=== PATIENT | female | born 1975 | race Caucasian/White ===

== ENCOUNTER 2017-05-19 10:29 | Outpatient (CLI) | payer BC ==
[2017-05-19 18:02] LABS: BASOPHILS # (AUTO) 0.1 10^3/uL (0.0-0.1); BASOPHILS % (AUTO) 0.7 %; EOSINOPHILS % (AUTO) 0.4 %; HCT - HEMATOCRIT 46.2 % (37.0-47.0); HGB - HEMOGLOBIN 15.4 g/dL (12.0-16.0); LYMPHOCYTES # (AUTO) 1.6 10^3/uL (1.5-3.5); LYMPHOCYTES % (AUTO) 19.4 %; MEAN CORPUSCULAR HEMOGLOBIN 31.5 pg (27.0-31.0); MEAN CORPUSCULAR HGB CONC 33.2 g/dL (32.0-36.0); MEAN CORPUSCULAR VOLUME 94.6 fL (81.0-99.0); MEAN PLATELET VOLUME 10.2 fL (7.9-10.8); MONOCYTES # (AUTO) 0.5 10^3/uL (0.0-1.0); MONOCYTES % (AUTO) 5.8 %; NEUTROPHILS # (AUTO) 6.1 10^3/uL (1.5-6.6); NEUTROPHILS % (AUTO) 73.7 %; NUCLEATED RED BLOOD CELLS AUTO 0.1 /100WBC; RED BLOOD COUNT 4.88 10^6/uL (4.20-5.40); UNCORRECTED WHITE BLOOD COUNT 8.3 x10^3/uL; WHITE BLOOD COUNT 8.3 x10^3/uL (4.8-10.8)
== END 2017-05-19 10:30 | disposition home or self-care (01) ==
LOC: LAB.F 10:29
PROVIDERS: ATTEND Physician Assistant Medical
DX: E03.9 Hypothyroidism, unspecified (principal); R53.83 Other fatigue
CPT/HCPCS: 36415; 84443; 85025

== ENCOUNTER 2017-06-23 13:51 | Outpatient (CLI) | payer BC ==
--- NOTE | 2017-06-23 15:26 | Mammography Report ---
DIGITAL DIAGNOSTIC BILATERAL MAMMOGRAM: 06/23/2017 CLINICAL INDICATION: A 42-year-old with bilateral breast tenderness. COMPARISON: 09/26/2004. TECHNIQUE: Bilateral CC, MLO, true lateral, laterally exaggerated CC views. The patient describes diffuse left breast tenderness and lateral right breast tenderness. No point of maximal tenderness could be identified, so no marker was placed. FINDINGS: The breasts again demonstrate heterogeneously dense fibroglandular parenchyma bilaterally. Parenchymal asymmetry in the left upper inner posterior breast is unchanged. No suspicious masses, cl ustered microcalcifications, or regions of architectural distortion are identified. IMPRESSION: BENIGN FINDINGS. RECOMMENDATION: ROUTINE ANNUAL SCREENING UNLESS OTHERWISE CLINICALLY INDICATED. BIRADS CATEGORY 2-BENIGN FINDINGS. STANDARD QUALIFYING STATEMENTS 1. This examination was reviewed with the aid of Computer-Aided Detection (CAD). 2. A negative or benign imaging report should not delay biopsy if clinically suspicious findings are present. Consider surgical consultation if warranted. More than 5% of cancers are not identified by i maging. 3. Dense breasts may obscure an underlying neoplasm. JOB #: [id number] EXT JOB #:[id number]
== END 2017-06-23 13:52 | disposition home or self-care (01) ==
LOC: DI 13:51
PROVIDERS: ATTEND Physician Assistant Medical
DX: N64.4 Mastodynia (principal)
CPT/HCPCS: 77066

== ENCOUNTER 2017-09-29 12:45 | Emergency (ER) | payer BC ==
[2017-09-29 12:51] VITALS: BP 135/93
--- NOTE | 2017-09-29 12:57 | ED Physician Documentation ---
PD HPI SKIN - Stated complaint Stated Complaint: RASH - Chief complaint Chief Complaint: General - History obtained from History obtained from: Patient - History of Present Illness Timing - onset: Yesterday Timing - duration: Days (1) Timing - details: Gradual onset, Still present Location: Bodywide (mostly trunk and some face.) Quality / character: Itchy, Swelling. No: Vesicular, Draining Improved by: No: Benadryl Associated symptoms: No: Fever, Myalgias, N/V/D, Urinary sx Contributing factors: Exposed to medication (placed on Bactrim for UTI recently. Just finished the course a few days ago.) Similar symptoms before: Has not had sx before Recently seen: Clinic (seen for facial acne flare up and Rx with Bactrim BID 4 days ago. She says she had some feeling of throat tightness initial dose then was okay. Did not take it for 2 days as was out of town with med. Resumed it 2 days ago and has had increasing rash since then. 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, Hysterectomy HEENT: Tonsil/Adenoidectomy - Present Medications Home Medications: Ambulatory Orders Medication Instructions Recorded Confirmed Clindamycin Phosphate 1 applic TP BID #60 ml 09/29/17 Dexamethasone [Decadron] 4 mg PO DAILY #5 tablet 09/29/17 Doxycycline Monohydrate 100 mg PO BID #14 tablet 09/29/17 - Allergies Allergies/Adverse Reactions: Allergies Allergy/AdvReac Type Severity Reaction Status Date / Time Penicillins AdvReac Unknown Verified 09/29/17 12:51 - Social History Does the pt smoke?: Yes Smoking Status: Current every day smoker Does the pt drink ETOH?: Yes Does the pt have substance abuse?: No - Immunizations Immunizations are current?: Yes - POLST Patient has POLST: No PD ED PE NORMAL - Vitals Vital signs reviewed: Yes - General General: Alert and oriented X 3, No acute distress, Well developed/nourished - HEENT HEENT: Moist mucous membranes, Pharynx benign - Neck Neck: Supple, no meningeal sign, No adenopathy - Cardiac Cardiac: RRR, No murmur - Respiratory Respiratory: Clear bilaterally - Back Back: No CVA TTP - Derm Derm: Normal color, Other (scattered red spotty rash on trnk, neck and side of face. No oral swelling. Rash without vesicles, petechia, nor purpura. ) - Extremities Extremities: No edema, No calf tenderness / cord Results - Vitals Vitals: Vital Signs - 24 hr 09/29/17 12:47 Temperature 36.3 C L Heart Rate 77 Respiratory 18 Rate Blood Pressure 135/93 H O2 Saturation 100 Oxygen O2 Source Room air PD MEDICAL DECISION MAKING - ED course Complexity details: considered differential (spotty rash without vesicles nor petechia. She appears okay otherwise. Oral exam normal and lungs clear. ), d/w patient Departure - Departure Disposition: 01 Home, Self Care Clinical Impression: Acute dermatitis, Drug allergy, antibiotic Condition: Stable Record reviewed to determine appropriate education?: Yes Instructions: ED Drug React Allergic Follow-Up: [facility] [Provider Group] Prescriptions: Clindamycin Phosphate 1 applic TP BID #60 ml Dexamethasone [Decadron] 4 mg PO DAILY #5 tablet Doxycycline Monohydrate 100 mg PO BID #14 tablet Comments: Stop the Bactrim as you have already. We will presume your rashes from that at this point. Decadron steroid daily for 5 more days to reduce the reaction. You can continue the Benadryl or cetirizine antihistamines for itchiness. If you need a different treatment for your acne, you can use Clindamycin topically or doxycycline orally. Subsequently your land manager can do skin testing to see if you are truly allergic to the Bactrim or if there was another cause. Discharge Date/Time: 09/29/17 13:38
[2017-09-29] MEDS ORDERED: DEXAMETHASONE 10 MG/ML VIAL PO STA (13:24)
[2017-09-29] MEDS ORDERED: DEXAMETHASONE 10 MG/ML VIAL ONE (13:34)
== END 2017-09-29 13:38 | disposition home or self-care (01) ==
LOC: ED 12:45
DX: L30.9 Dermatitis, unspecified (principal); T37.0X5A Adverse effect of sulfonamides, initial encounter; F17.200 Nicotine dependence, unspecified, uncomplicated
CPT/HCPCS: 99283

== ENCOUNTER 2018-01-11 09:38 | Outpatient (CLI) | payer BC | END 2018-01-11 09:39 | disposition home or self-care (01) | LOC: LAB.F 09:38 | PROVIDERS: ATTEND Family Medicine | DX: Z53.9 Procedure and treatment not carried out, unspecified reason (principal) ==

== ENCOUNTER 2018-01-12 07:12 | Outpatient (CLI) | payer BC ==
[2018-01-12 12:00] LABS: BASOPHILS % (AUTO) 0.6 %; HGB - HEMOGLOBIN 14.4 g/dL (12.0-16.0); LYMPHOCYTES # (AUTO) 1.4 10^3/uL (1.5-3.5); LYMPHOCYTES % (AUTO) 29.8 %; MEAN CORPUSCULAR HEMOGLOBIN 31.6 pg (27.0-31.0); MEAN CORPUSCULAR HGB CONC 34.1 g/dL (32.0-36.0); MEAN CORPUSCULAR VOLUME 92.9 fL (81.0-99.0); MEAN PLATELET VOLUME 10.9 fL (7.9-10.8); MONOCYTES # (AUTO) 0.3 10^3/uL (0.0-1.0); MONOCYTES % (AUTO) 6.4 %; NEUTROPHILS # (AUTO) 2.8 10^3/uL (1.5-6.6); NEUTROPHILS % (AUTO) 62.2 %; PLT - PLATELET COUNT 162 10^3/uL (130-450); RED BLOOD COUNT 4.54 10^6/uL (4.20-5.40); RED CELL DISTRIBUTION WIDTH 13.2 % (12.0-15.0); WHITE BLOOD COUNT 4.6 x10^3/uL (4.8-10.8)
[2018-01-12 12:28] LABS: % IRON SATURATION 16 % (20-50); ALBUMIN 4.1 g/dL (3.2-5.5); ALBUMIN/GLOBULIN RATIO 1.7 (1.0-2.2); ALKALINE PHOSPHATASE 18 IU/L (42-121); ALT ALANINE AMINOTRANSFERASE 14 IU/L (10-60); AST ASPARTATE AMINOTRANSFERASE 17 IU/L (10-42); BILIRUBIN,TOTAL 0.4 mg/dL (0.2-1.0); BUN - BLOOD UREA NITROGEN 13 mg/dL (6-20); CALCIUM 8.7 mg/dL (8.5-10.3); CARBON DIOXIDE - CO2 23 mmol/L (21-32); CHLORIDE 109 mmol/L (101-111); CHOL/HDL RATIO 3.4 (<4.4); CHOLESTEROL 129 mg/dL; CREATININE 0.8 mg/dL (0.4-1.0); GFR - MDRD 78 (>89); GLUCOSE 99 mg/dL (70-100); HDL CHOLESTEROL 38 mg/dL; IRON 43 ug/dL (28-170); LDL CHOLESTEROL,CALCULATED 80 mg/dL; LDL/HDL RATIO 2.1 (<4.4); SODIUM 137 mmol/L (135-145); TOTAL IRON BINDING CAPACITY 265 ug/dL (250-450); TOTAL PROTEIN 6.5 g/dL (6.7-8.2); TRANSFERRIN 189 mg/dL (192-382); VLDL CHOLESTEROL 11 mg/dL
[2018-01-12 12:31] LABS: THYROID STIMULATING HORMONE 2.16 uIU/mL (0.34-5.60)
[2018-01-12 12:37] LABS: FERRITIN 82.2 ng/mL (11.0-306.8)
== END 2018-01-12 07:13 | disposition home or self-care (01) ==
LOC: LAB.F 07:12
PROVIDERS: ATTEND Family Medicine
DX: Z00.00 Encounter for general adult medical examination without abnormal findings (principal); D64.9 Anemia, unspecified; E03.9 Hypothyroidism, unspecified; L65.9 Nonscarring hair loss, unspecified
CPT/HCPCS: 36415; 80053; 80061; 82306; 82607; 82728; 83540; 83721; 84443; 84466; 85025

== ENCOUNTER 2020-01-19 10:45 | Outpatient (CLI) | payer SELFPAY ==
[2020-01-19 17:30] LABS: BASOPHILS # (AUTO) 0.1 10^3/uL (0.0-0.1); BASOPHILS % (AUTO) 0.7 %; EOSINOPHILS % (AUTO) 0.3 %; HGB - HEMOGLOBIN 14.2 g/dL (12.0-16.0); LYMPHOCYTES # (AUTO) 1.6 10^3/uL (1.5-3.5); LYMPHOCYTES % (AUTO) 22.7 %; MEAN CORPUSCULAR HEMOGLOBIN 31.3 pg (27.0-31.0); MEAN CORPUSCULAR HGB CONC 33.2 g/dL (32.0-36.0); MEAN CORPUSCULAR VOLUME 94.5 fL (81.0-99.0); MEAN PLATELET VOLUME 12.2 fL (7.9-10.8); MONOCYTES # (AUTO) 0.4 10^3/uL (0.0-1.0); MONOCYTES % (AUTO) 5.5 %; NEUTROPHILS % (AUTO) 70.4 %; PLT - PLATELET COUNT 243 10^3/uL (130-450); RED BLOOD COUNT 4.53 10^6/uL (4.20-5.40); RED CELL DISTRIBUTION WIDTH 12.9 % (12.0-15.0); WHITE BLOOD COUNT 7.1 x10^3/uL (4.8-10.8)
[2020-01-19 18:23] LABS: ALBUMIN 4.4 g/dL (3.2-5.5); ALBUMIN/GLOBULIN RATIO 1.8 (1.0-2.2); ALKALINE PHOSPHATASE 19 IU/L (42-121); ALT ALANINE AMINOTRANSFERASE 18 IU/L (10-60); AST ASPARTATE AMINOTRANSFERASE 19 IU/L (10-42); BILIRUBIN,TOTAL 1.1 mg/dL (0.2-1.0); BUN - BLOOD UREA NITROGEN 14 mg/dL (6-20); CALCIUM 9.4 mg/dL (8.5-10.3); CARBON DIOXIDE - CO2 24 mmol/L (21-32); CHLORIDE 107 mmol/L (101-111); CREATININE 0.8 mg/dL (0.4-1.0); GFR - MDRD 77 (>89); GLUCOSE 92 mg/dL (70-100); SODIUM 138 mmol/L (135-145); TOTAL PROTEIN 6.9 g/dL (6.7-8.2)
[2020-01-19 18:28] LABS: CRP - C-REACTIVE PROTEIN < 1.0 mg/dL (0-1.0)
[2020-01-19 18:59] LABS: RHEUMATOID FACTOR NEGATIVE (Negative)
== END 2020-01-19 10:46 | disposition home or self-care (01) ==
LOC: LAB.S 10:45
PROVIDERS: ATTEND Family Medicine
DX: R53.83 Other fatigue (principal); E55.9 Vitamin D deficiency, unspecified; D64.9 Anemia, unspecified; E03.9 Hypothyroidism, unspecified; M06.9 Rheumatoid arthritis, unspecified
CPT/HCPCS: 36415; 80053; 82306; 82607; 84443; 85025; 85651; 86140; 86200; 86430

== ENCOUNTER 2020-07-30 07:00 | Outpatient (CLI) | payer OTHER ==
[2020-07-31 16:26] LABS: TRICHOMONAS VAGINALIS DNA NEGATIVE (NEGATIVE)
[2020-07-31 18:44] LABS: CANDIDA GROUP DNA NEGATIVE (NEGATIVE); CANDIDA KRUSEI DNA NEGATIVE (NEGATIVE); TRICHOMONAS VAGINALIS DNA NEGATIVE (NEGATIVE)
== END 2020-07-30 23:59 | disposition home or self-care (01) ==
LOC: LAB.R 07:00
PROVIDERS: ATTEND Family Medicine
DX: Z20.2 Contact with and (suspected) exposure to infections with a predominantly sexual mode of transmission (principal)
CPT/HCPCS: 87491; 87591; 87661; 87801

== ENCOUNTER 2020-09-20 11:30 | Outpatient (CLI) | payer OTHER | END 2020-09-20 11:31 | disposition home or self-care (01) | LOC: COV 11:30 | PROVIDERS: ATTEND Surgery | DX: Z01.812 Encounter for preprocedural laboratory examination (principal); Z20.828 Contact with and (suspected) exposure to other viral communicable diseases; K64.9 Unspecified hemorrhoids ==

== ENCOUNTER 2020-09-23 08:12 | Day surgery (SDC) | payer OTHER ==
[2020-09-23] MEDS ORDERED: DEXAMETHASONE 4 MG/ML VIAL IVP ONE (08:13)
[2020-09-23] MEDS ORDERED: PROPOFOL 200 MG/20 ML VIAL IVP ONE (08:13)
[2020-09-23] MEDS ORDERED: KETOROLAC 30 MG/ML VIAL IVP ONE (08:13)
[2020-09-23] MEDS ORDERED: fentaNYL 100 MCG/2 ML VIAL IVP ONE (08:13)
[2020-09-23] MEDS ORDERED: LIDOCAINE-MPF 2% 5 ML VIAL IM ONE (08:13)
[2020-09-23] MEDS ORDERED: ONDANSETRON 4 MG/2 ML VIAL IVP ONE (08:13)
[2020-09-23] MEDS ORDERED: MIDAZOLAM 2 MG/2 ML VIAL IVP ONE (08:13)
[2020-09-23] MEDS ORDERED: LACTATED RINGERS 1,000 ML IV ONE ×2 (08:40→11:03)
--- NOTE | 2020-09-23 09:21 | ANESTHESIA ---
Pre-Anesthesia VS, & Labs - Diagnosis hemorrhoids - Procedure EUA open hemorrhoidectomy Vital Signs: Temp Pulse Resp BP Pulse Ox 36.3 C L 73 16 132/80 H 100 09/23/20 08:41 09/23/20 08:41 09/23/20 08:41 09/23/20 08:41 09/23/20 08:41 Height: 5 ft 6 in Weight (kg): 2.49 kg Body Mass Index: 0.8 BMI Classification: Underweight - NPO >8 hours - Is Patient ?: No Home Medications and Allergies Home Medications: Ambulatory Orders DULoxetine [Cymbalta] 30 mg PO DAILY 09/19/20 Docusate Sodium [Dulcolax Stool Softener] 100 mg PO DAILY 09/19/20 Fexofenadine HCl [Marie Allergy] 60 mg PO DAILY 09/19/20 Fluticasone [Flonase] 1 sprays PETRONA BID 09/19/20 Levothyroxine Sodium 50 mcg PO DAILY 09/19/20 DULoxetine [Cymbalta] 30 mg PO DAILY 09/19/20 Docusate Sodium [Dulcolax Stool Softener] 100 mg PO DAILY 09/19/20 Fexofenadine HCl [Marie Allergy] 60 mg PO DAILY 09/19/20 Fluticasone [Flonase] 1 sprays PETRONA BID 09/19/20 Levothyroxine Sodium 50 mcg PO DAILY 09/19/20 Allergies/Adverse Reactions: Allergies Allergy/AdvReac Type Severity Reaction Status Date / Time Penicillins Allergy Hives Verified 09/23/20 08:51 acetaminophen [From Vicodin] AdvReac Emesis Verified 09/23/20 08:51 hydrocodone [From Vicodin] AdvReac Emesis Verified 09/23/20 08:51 Anes History & Medical History - Anesthetic History Anesthesia Complications: reports: No previous complications - Medical History Cardiovascular: reports: None Pulmonary: reports: None Gastrointestinal: reports: Hemorrhoids, Other Urinary: reports: None Neuro: reports: None Musculoskeletal: reports: Fibromyalgia, Rheumatoid arthritis (Questionable diagnosis) Endocrine/Autoimmune: reports: HyPOthyroidism Blood Disorders: reports: None Skin: reports: None Smoking Status: Current every day smoker (Vapes) Psychosocial: reports: Depression, Anxiety, Alcohol (once per week) History of Cancer?: No - Surgical History General: Colonoscopy, EGD Eyes Ears Nose Throat (EENT): Tonsil/Adenoidectomy Gynecologic: section, Hysterectomy Exam General: Alert, Oriented x3, Cooperative, No acute distress Dental: WNL Mouth Openin Fingerbreadth Neck Mobility: Normal Mallampati classification: I Thyromental Distance: 4-6 cm Mental/Cognitive Status: Alert/Oriented X3, Normal for patient Plan Anesthesia Type: General Consent for Procedure(s) Verified and Reviewed: Yes Code Status: Attempt Resuscitation ASA classification: 2-Mild systemic disease Is this case an emergency?: No
[2020-09-23] MEDS ORDERED: BUPIVACAINE 0.5% PF 10 ML VIAL ONE (10:20)
[2020-09-23] MEDS ORDERED: LIDOCAINE 1%-EPI 1:100000 20 ML MDV ONE (10:20)
[2020-09-23] MEDS ORDERED: BUPIVACAINE 0.5% PF 30 ML VIAL SUBQ ONE ×2 (10:42)
[2020-09-23] MEDS ORDERED: LIDOCAINE 1%-EPI 1:100000 20 ML MDV SUBQ ONE ×2 (10:42)
[2020-09-23] MEDS ORDERED: LIDOCAINE OINTMENT 5% 35.44 GM TUBE TOP ONE (10:59)
[2020-09-23] MEDS ORDERED: LIDOCAINE OINTMENT 5% 35.44 GM TUBE ONE ×2 (11:00→11:27)
[2020-09-23] MEDS ORDERED: ONDANSETRON 4 MG/2 ML VIAL IVP PRN (11:05)
[2020-09-23 11:38] VITALS: BP 136/86
--- NOTE | 2020-09-23 12:18 | ANESTHESIA POST OP EVALUATION ---
Anesthesia Post Eval - Post Anesthesia Eval Vitals: Last Vital Signs Temp 36.5 C 09/23/20 11:20 Pulse 75 09/23/20 11:37 Resp 14 09/23/20 11:37 BP 136/86 H 09/23/20 11:37 Pulse Ox 100 09/23/20 11:37 CV Function Including HR & BP: positive: Stable Pain Control: positive: Satisfactory Nausea & Vomiting: positive: Negative Mental Status: positive: Baseline Respiratory Status: Airway Patent Hydration Status: Satisfactory
--- NOTE | 2020-09-29 15:44 | OPERATIVE REPORT ---
Operative Report - General Planned Procedure: Examination under anesthesia with banding and excision of external hemorrhoids Pre-Op Diagnosis: Large external hemorrhoid and prolapsing internal hemorrhoids Procedure Performed: Examination under anesthesia with open hemorrhoidectomy x2 and internal hemorrhoid banding. Post Op Diagnosis: Large thrombosed external hemorrhoid, residual skin tag and prolapsing inte - Procedure Note Primary Surgeon: Jason Anesthesia Provider: GRIFFIN Saleem Anesthesia Technique: General LMA Pathology: Portions of hemorrhoid tissue to pathology in formalin. Estimated Blood Loss (mL): 15 Findings: See post operative diagnosis Complications: None apparent - Other Other Information/Narrative: After obtaining informed consent, the patient is brought to the operating room and placed im the supine position on the operating table. Following successful induction of anesthesia, the patient's legs were placed in stirrups for lithotomy position and all bony prominences padded. The perineal and perianal area were prepped and draped in the standard surgical fashion. A Time Out was help per scope protocol. All elements of the surgical safety check list were followed before, during and after the procedure. The perianal region was examined and an obturator placed within the anal canal. 3 large comlexes of internal hemorroids were noted to prolapse into the anal canal. No fissure or fistula was appreciated. A large hemorrhoid was appreciated at the 7 o'clock radian and a large residual skin tag at the 12 o'clock radian. The lesion at 7 o'clock was addressed first. The hemorroid was grasped at its apex 1.5 cm proximal to the dentate line. A 3-0 chromic suture was placed at the apex. The mucosa was opened using a 15 blade scalpel. The edges of the mucosa were lifted and the vein gently dissected from the underlying muscle and overlying mucosa and amputated at the anal opening. The mucosa was then closed in a running, locking fashion with chromic suture. The skin tag at 12 o'clock was addressed next. This was grasped and the redundant skin excised in an elliptical fashion. The defect was then closed with 3-0 chromic suture. We addressed the internal hemorhoids lastly. With the obturator in the anal canal, the JDCPhosphate sure shot hemorrhoid tongue trimmer was applied to the tissue. The tip of the device was placed into contact with the tissue at the 4 o'clock position first. The suction port was closed and the tissue pulled into the device. A band was applied to the tissue by rotating the deploying wheel in a clockwise direction. The procedure was repeated at the 8 o'clock position. The tip of the device was placed into contact with the tissue at the 4 o'clock position first. The suction port was closed and the tissue pulled into the device. A band was applied to the tissue by rotating the deploying wheel in a clockwise direction. The procedure was repeated at the 12 o'clock position. The tip of the device was placed into contact with the tissue. The suction port was closed and the tissue pulled into the device. A band was applied to the tissue by rotating the deploying wheel in a clockwise direction. The wound was checked for hemostasis and dressed with dibucaine and gelfoam. All sponge, needle, and instrument counts were correct at the conclusion of the case. The patient was allowed to awaken from anesthesia and taken to the post anesthesia care unit in good condition.
== END 2020-09-23 08:13 | disposition home or self-care (01) ==
LOC: SDS 08:12
PROVIDERS: ATTEND Surgery
PROC: 06BY0ZC Excision of Hemorrhoidal Plexus, Open Approach (ICD-10-PCS; principal; 2020-09-23 09:30)
DX: K64.5 Perianal venous thrombosis (principal); K64.8 Other hemorrhoids; K64.4 Residual hemorrhoidal skin tags; M79.7 Fibromyalgia; M06.9 Rheumatoid arthritis, unspecified; F17.290 Nicotine dependence, other tobacco product, uncomplicated; E03.9 Hypothyroidism, unspecified; R63.6 Underweight; Z68.20 Body mass index [BMI] 20.0-20.9, adult; F32.9 Major depressive disorder, single episode, unspecified; F41.9 Anxiety disorder, unspecified
CPT/HCPCS: 46221; 46320; A9270; J7120

== ENCOUNTER 2020-11-19 08:00 | Outpatient (CLI) | payer OTHER | END 2020-11-19 23:59 | LOC: LAB.R 08:00 | PROVIDERS: ATTEND Surgery | DX: R19.7 Diarrhea, unspecified (principal) | CPT/HCPCS: 87493 ==